=== PATIENT | female | born 1995 | race Caucasian/White ===

== ENCOUNTER → 2021-04-24 | Outpatient (CLI) | payer OTHER ==
--- NOTE | 2021-04-24 15:00 | FL ---
Hysterosalpingogram INDICATION: Infertility TECHNIQUE: The procedure was explained to the patient the risks, complications and benefits. All ques tions were answered. Informed consent was obtained. Timeout was performed. The patient was placed on the fluoroscopy table in the supine position. The speculum was placed in th e vaginal vault cleansed with Betadine. The catheter was placed. The balloon was inflated. Under fluo roscopic observation 5 mL of Isovue-200 M was administered. Balloon was deflated and the catheter wit hdrawn. Postprocedural radiograph was obtained. The patient was released with discharge instructions discussed with the patient. The patient tolerated the procedure well. FINDINGS: There is easy flow of contrast through the cervical os into the uterus. The uterus has a normal appea camille. Prompt fill and spill of the contrast through the fallopian tubes is evident. No loculation of contrast is noted. Both oblique views were obtained. No loculation of contrast post procedure delaye d radiograph is evident. Fluoroscopy time: 17 seconds. Images obtained: 9. IMPRESSIONS: 1. Normal hysterosalpingogram. Uterus appears unremarkable and there is easy free spill from the fall opian tubes into the pelvis.
== END | disposition home or self-care (01) ==
LOC: RADUSWWP 13:19
PROVIDERS: ATTEND Obstetrics & Gynecology Obstetrics
DX: N97.9 Female infertility, unspecified (principal)
CPT/HCPCS: 58340; 74740; Q9966